=== PATIENT | female | born 1985 ===

== ENCOUNTER 2022-12-16 16:08 | Emergency (ER) | payer OTHER, SELFPAY ==
[2022-12-16 16:17] VITALS: BP 129/88; PULSE 112; RESP 16; TEMP 37.3; O2SAT 97
--- NOTE | 2022-12-16 16:50 | ED.URI ---
HPI - URI/Sore Throat General Chief Complaint: Upper Respiratory Infection Stated Complaint: sinus and sore throat Time Seen by Provider: 12/16/22 16:50 Source: patient and RN notes reviewed Mode of arrival: ambulatory Limitations: no limitations History of Present Illness HPI Narrative: 37 y/o female presented for concern for strep as her child tested positive today. Endorses 2 weeks of sinus congestion and drainage and bilateral ear pain. Denies sore throat. Not taking anything for symptoms. Using neti pot for congestion. Denies cough, sob, wheezing, n/v/d/f/c. MD elicited complaint: cough Related Data Home Medications Medication Instructions Recorded Confirmed ixekizumab 80 mg/mL subcutaneous 80 mg subcut MONTHLY 12/16/22 12/16/22 auto-injector (Taltz Autoinjector) Allergies Allergy/AdvReac Type Severity Reaction Status Date / Time Penicillins Allergy Unknown Unknown Verified 12/16/22 16:37 Review of Systems Review of Systems: per HPI Exam Narrative: GENERAL: well-appearing EYES: PERRLA, conjunctivae clear ENT: Mucous membranes moist. TM pearly fitzgerald with light reflex bilaterally; no tragal tenderness. Oropharynx erythematous without lesions or exudate, no drooling, no hoarseness, no trismus, uvula midline. NECK: Supple. No lymphadenopathy CHEST: Clear to auscultation, breath sounds equal. No wheezing, rhonchi, rales, or stridor. No respiratory distress, speaks in full sentences. HEART: Regular rate and rhythm. No murmur heard. SKIN: Warm, dry, no rash. Course Course Emergency Course: Patient is aware of diagnosis, understands and agrees to treatment plan. Anticipatory guidance given. Patient agrees to follow-up as directed and is aware of reasons to seek care at the emergency department. Portions of this record may have been created with voice recognition software Level of Care: Express Care Visit Vital Signs Vital signs: Vital Signs Temperature 99.2 F 12/16/22 16:17 Pulse Rate 112 H 12/16/22 16:17 Respiratory Rate 16 12/16/22 16:17 Blood Pressure 129/88 12/16/22 16:17 Pulse Oximetry 97 12/16/22 16:17 Oxygen Delivery Room Air 12/16/22 16:17 Temperature 99.2 F 12/16/22 16:17 Pulse Rate 112 H 12/16/22 16:17 Respiratory Rate 16 12/16/22 16:17 Blood Pressure 129/88 12/16/22 16:17 Pulse Oximetry 97 12/16/22 16:17 Oxygen Delivery Room Air 12/16/22 16:17 reviewed MDM - URI/Sore Throat MDM Narrative Medical decision making narrative: Strep negative. States she usually tests positive on the culture. Will send abx based on PE and known exposure.Advised supportive measures and signs/symptoms to go to the ER. Pt is appropriate for outpt treatment and f/u. Differential Diagnosis Differential diagnosis: Likely upper respiratory infection, sinusitis and viral infection Lab Data Labs: Strep Screen Presumptive Negative *(Reference Range: Negative)* Strep Screen Presumptive Negative *(Reference Range: Negative)* Discharge Plan Discharge Clinical Impression: Upper respiratory infection Qualifiers: URI type: unspecified URI Qualified Code(s): J06.9 - Acute upper respiratory infection, unspecified Patient Disposition: Home, Self-Care Condition: Stable Instructions: Antibiotic Form, Strep Throat (ED) Additional Instructions: - Take the antibiotic as directed. Fever and sore throat typically resolve within one to three days. Most patients can return to work after 12 to 24 hours of antibiotic therapy, provided you are fever free and otherwise well. -Eat and drink things that are easy to swallow, like soft foods, cool liquids, tea with honey, or popsicles . -Salt water gargles and/or may use topical anesthetic ( Chloraseptic spray) or lozenges to relieve dryness or throat pain -Alternate Tylenol and ibuprofen as needed for pain and fever as direct
== END 2022-12-16 17:00 | disposition home or self-care (01) ==
PROVIDERS: Emergency Provider Nurse Practitioner Family; PCP Internal Medicine
DX: J06.9 Acute upper respiratory infection, unspecified (principal)
CPT/HCPCS: 87081; 87880; 99213; G0463

== ENCOUNTER 2023-09-04 15:41 | Emergency (ER) | payer OTHER, SELFPAY ==
[2023-09-04 15:50] VITALS: BP 130/60; PULSE 85; RESP 16; TEMP 36.7; O2SAT 99
--- NOTE | 2023-09-04 16:12 | ED.URI ---
HPI - URI/Sore Throat General Chief Complaint: Upper Respiratory Infection Stated Complaint: strep test History of Present Illness HPI Narrative: 38-year-old female presented for complaint of sore throat, sinus congestion and headache for 2 weeks. States her son tested positive for strep throat today. Denies n/v/d/f/c. Not taking anything for symptoms. Related Data Home Medications Medication Instructions Recorded Confirmed ixekizumab 80 mg/mL subcutaneous 80 mg subcut MONTHLY 12/16/22 09/04/23 auto-injector (Taltz Autoinjector) Allergies Allergy/AdvReac Type Severity Reaction Status Date / Time Penicillins Allergy Unknown Unknown Verified 12/16/22 16:37 Review of Systems Review of Systems: CONSTITUTIONAL: Denies body aches, fever, chills, or sweats. EYES: Denies visual changes, redness, or discharge. ENT: reports sore throat, rhinorrhea, congestion CARDIOVASCULAR: Denies chest pain, palpitations, or edema. RESPIRATORY: Denies dyspnea. GASTROINTESTINAL: Denies abdominal pain, nausea, vomiting, or diarrhea. SKIN: Denies rash, itching, or wounds. MUSCULOSKELETAL: Denies back pain, joint pain, or myalgia. NEUROLOGIC: reports headache PMF Past Medical History Medical History (Updated 09/04/23 @ 16:15 by Yareli Rubi, [employer]) No pertinent past medical history Exam Narrative: GENERAL: well-appearing, no acute distress. EYES: conjunctivae clear ENT: Mucous membranes moist. TMs pearly fitzgerald with normal light reflex bilaterally; no tragal tenderness. Oropharynx erythematous Tonsils enlarged without exudate. No drooling, no hoarseness, no trismus, uvula midline. No tripod positioning, hot potato voice, or soft palate swelling. NECK: Supple. No lymphadenopathy CHEST: Clear to auscultation, breath sounds equal. No respiratory distress, speaks in full sentences. HEART: Regular rate and rhythm. No murmur heard. SKIN: Warm, dry, no rash. NEURO: Alert and oriented x3. Course Course Emergency Course: Patient is aware of diagnosis, understands and agrees to treatment plan. Anticipatory guidance given. Patient agrees to follow-up as directed and is aware of reasons to seek care at the emergency department. Portions of this record may have been created with voice recognition software Level of Care: Express Care Visit Vital Signs Vital signs: Vital Signs Temperature 98.0 F 09/04/23 15:50 Pulse Rate 85 09/04/23 15:50 Respiratory Rate 16 09/04/23 15:50 Blood Pressure 130/60 09/04/23 15:50 Pulse Oximetry 99 09/04/23 15:50 Oxygen Delivery Room Air 09/04/23 15:50 Temperature 98.0 F 09/04/23 15:50 Pulse Rate 85 09/04/23 15:50 Respiratory Rate 16 09/04/23 15:50 Blood Pressure 130/60 09/04/23 15:50 Pulse Oximetry 99 09/04/23 15:50 Oxygen Delivery Room Air 09/04/23 15:50 MDM - URI/Sore Throat MDM Narrative Medical decision making narrative: Neg strep result reviewed with pt. Will send abx given known strep exposure, and URI sx x2 weeks. Advise supportive treatments. Patient is appropriate for outpatient treatment and follow-up. Differential Diagnosis Differential diagnosis: Likely upper respiratory infection, sinusitis, viral infection and pharyngitis Lab Data Labs: Strep Screen Presumptive Negative *(Reference Range: Negative)* Discharge Plan Discharge Clinical Impression: Pharyngitis Patient Disposition: Home, Self-Care Condition: Stable Instructions: Antibiotic Form, Upper Respiratory Infection (ED) Additional Instructions: Rapid strep swab was negative today if symptoms are due to a viral illness, it is not treated with antibiotics. Viral symptoms can be present for up to 10-14 days. Recommend Flonase spray and Zyrtec for sinus congestion Cough syrup may cause drowsiness; avoid driving or take it at night time. Tylenol every 8 hours as needed for elijah
== END 2023-09-04 16:16 | disposition home or self-care (01) ==
PROVIDERS: Emergency Provider Nurse Practitioner Family; PCP Internal Medicine
DX: J02.9 Acute pharyngitis, unspecified (principal)
CPT/HCPCS: 87081; 87880; 99213; G0463